=== PATIENT | male | born 1945 | race Caucasian/White ===

== ENCOUNTER 2018-09-19 17:03 | Inpatient (IN) ==
[2018-09-19 20:41] LABS: ABG Base Excess 6 mEq/L (-2 to 3); ABG HCO3 29 mEq/L (21-27); ABG Oxygen Saturation 98 % (95-98); ABG PCO2 37 mmHg (35-45); ABG PH 7.51 pH Units (7.32-7.45); ABG PO2 87 mmHg (85-104); ABG TCO2 30 mEq/L (20-26)
[2018-09-19] MEDS: Ipratropium/Albuterol Neb 3 ML IH SCH ×4 (20:50→23:48)
--- NOTE | 2018-09-19 21:50 | Internal Med History&Physical ---
Date of Encounter: 09/19/18 Time of Encounter: 21:49 Internal Medicine - H&P: HPI Chief complaint: SOB Admitted From: Home Plans for Post Hospital Care: Home History of present illness: Mata Cantu is a 73 year old man with coronary artery disease with stents, pulmonary embolism on apixaban and chronic hypoxic respiratory failure on home oxygen secondary to severe COPD who presents on transfer from [facility] where he went to with complaints of increasing shortness of breath. His states that for the past 2 months he has been in and out of hospitals due to COPD exacerbations and pneumonia, stating that ever since his medication regimen was changed to months ago things have not been the same even though he has since been reverted back to his original regimen. He reports increased dyspnea with mild exertion and he is easily fatigued now with notable exercise intolerance. He feels a pressure and tightness over his chest and feels he cannot get any air in. His states that this morning he choked on his medications as he is now having some difficulty swallowing. He denies fever and chills and states that his cough is nonproductive. His reports a history of MRSA pneumonia many years ago. At [place] he received a nebulizer treatment and was sent here for continued therapy. Vitals: Reviewed General: Notably fatigued and asthenic appearing. Skin: Diaphoretic, warm. HEENT: Moist mucous membranes. No conjunctivae pallor. Neck: No lymphadenopathy. No JVD. No carotid bruits. No palpable thyroid. Chest: Reduced thoracic expansion with diminished breath sounds bilaterally and a mild expiratory tracheal wheeze. Heart: Normal S1 & S2; rhythmic. No rubs or murmurs. Abdomen: distended, soft and non-tender to palpation. No peritoneal reaction. Extremities: No clubbing, cyanosis. Trace lower extremity edema. No calf tenderness. Normal distal pulses. Neurological: Awake, alert and oriented to person, place and time. No focal deficits. Psych: Affect appropriate. Assessment/Plan 1. Acute on chronic hypoxic respiratory failure: Suspect secondary to progressive COPD. Will need to evaluate the presence of an underlying triggering infection. He will be better evaluated with a chest CT with contrast given the multiple admissions he has had for these complaints and complicated respiratory history. Will keep him on standing nebulizer therapy for now and continue systemic steroids with azithromycin for its anti-inflammatory properties. 2. VTE: Continue apixaban. 3. CAD: Should be on aspirin and statin but is not on his home med list. EKG showing normal sinus rhythm occasional premature complexes. Chest pain free. He may have an element of ischemic cardiomyopathy and will get an echo for evaluation. 4. Dysphagia: The patient passed his bedside swallowing screen in my presence however he has some difficulty and is at risk for aspiration. Will get a speech/swallow consult for further evaluation. Past Med Surg Social Fam HX - Past Medical History Medical history: asthma, COPD, DVT, GERD Additional medical history: stents times 3, Psychiatric history: anxiety - Social History Smoking Status: Former smoker Alcohol use: none Drug use: none - Family History Mother Living Status: Age at : 85 Cause of : heart attack Father Living Status: Age at : 59 Cause of : heart attack Internal Medicine - H&P: Meds Allergy/AdvReac Type Severity Reaction Status Date / Time cefazolin [From Ancef] AdvReac See Verified 09/19/18 21:17 Comments All Systems PM: A 10-system review of systems was performed and is negative for pertinent findings except as documented above in the HPI. - Constitutional Vitals: Temp Pulse Resp BP Pulse Ox 98.4 F 93 19 148/72 97 09/19/18 19:49 09/19/18 19:49 09/19/18 20:50 09/19/18 19:49 09/19/18 20:50 Exam: . Internal Med - H&P Results - ABG Interpretation ABG results: 09/19/18 20:38 ABG pH 7.51 H ABG pCO2 37 ABG pO2 87 ABG HCO3 29 H ABG Total CO2 30 H ABG O2 Saturation 98 ABG Base Excess 6 H - Time Spent With Patient Total time spent is greater than 50% in coordination of care (as documented) at patient's floor/unit and/or counseling patient: Greater than 35 minutes
[2018-09-19 22:00] LABS: Basophils # 0.1 K/mcL (0.0-0.2); Basophils % 0.7 %; Eosinophils # 0.1 K/mcL (0.0-0.6); Eosinophils % 0.7 %; Hematocrit 45.8 % (37.5-50.1); Hemoglobin 14.4 g/dL (12.9-16.9); Immature Granulocytes % 4.1 % (0-4); Lymphocytes # 1.7 K/mcL (0.6-4.6); Lymphocytes % 13.2 %; Mean Corpuscular HGB Conc 31.4 g/dL (31.6-35.5); Mean Corpuscular Hemoglobin 33.9 pg (28.0-33.3); Mean Corpuscular Volume 107.8 fL (83.0-100.0); Mean Platelet Volume 9.9 fL (9.4-12.4); Monocytes # 0.8 K/mcL (0.0-1.3); Monocytes % 6.1 %; Neutrophils # 9.7 K/mcL (1.6-8.9); Nucleated Red Blood Cells 0.2 /100 WBC (0); Platelet Count 189 K/mcL (140-400); Red Blood Count 4.25 M/mcL (4.19-5.50); Red Cell Distribution Width 15.7 % (11.5-14.5); Segmented Neutrophils % 75.2 %; White Blood Count 12.8 K/mcL (4.3-11.1)
[2018-09-19] MEDS: Apixaban 5 MG TABLET PO SCH (22:06)
[2018-09-19] MEDS: GuaiFENesin Liq 200 MG/10 ML UDC PO PRN (22:07)
[2018-09-19 22:09] LABS: Heparin anti-factor XA UFH 0.85 IU/mL (0.30-0.70)
[2018-09-19 22:11] LABS: Activated Partial Thrombo Time 30.1 Seconds (26.0-36.0)
[2018-09-19 22:20] LABS: BUN/Creatinine Ratio 31 (6-26); Blood Urea Nitrogen 39 mg/dL (8-23); Calcium 9.3 mg/dL (8.6-10.3); Carbon Dioxide 31 mEq/L (23-29); Chloride 103 mEq/L (98-107); Glucose 98 mg/dL (70-105); Magnesium 3.1 mg/dL (1.6-2.6); Osmolality,Calculated 307 (280-300); Potassium 4.1 mEq/L (3.5-5.1); Sodium 144 mEq/L (136-145); eGFR For African Americans > 60 (> 60); eGFR For Non-African Americans 56 (> 60)
[2018-09-19 22:21] LABS: Troponin I 0.03 ng/mL (< 0.04)
[2018-09-19] MEDS ORDERED: Isovue-370 500 ML BOTTLE IVP ONE (23:05)
[2018-09-19] MEDS ORDERED: Ringers Solution, Lactated 1,000 ML IVC SCH (23:15)
[2018-09-20] MEDS: Ipratropium/Albuterol Neb 3 ML IH PRN ×2 (02:30→06:37)
[2018-09-20 04:02] LABS: BUN/Creatinine Ratio 32 (6-26); Blood Urea Nitrogen 37 mg/dL (8-23); Calcium 8.7 mg/dL (8.6-10.3); Carbon Dioxide 30 mEq/L (23-29); Chloride 102 mEq/L (98-107); Glucose 83 mg/dL (70-105); Magnesium 2.8 mg/dL (1.6-2.6); Osmolality,Calculated 302 (280-300); Potassium 4.5 mEq/L (3.5-5.1); Sodium 142 mEq/L (136-145); eGFR For African Americans > 60 (> 60); eGFR For Non-African Americans > 60 (> 60)
[2018-09-20] MEDS ORDERED: Ipratropium/Albuterol Neb 3 ML IH ONE (06:37)
[2018-09-20] MEDS ORDERED: Furosemide 20 MG/2 ML VIAL IVP ONE (06:47)
[2018-09-20] MEDS ORDERED: Morphine Sulfate 2 MG/ML SYRINGE IVP ONE ×2 (06:47→07:02)
[2018-09-20] MEDS ORDERED: Ipratropium/Albuterol Neb 3 ML ONE (06:48)
--- NOTE | 2018-09-20 07:15 | Event Note ---
Date of Encounter: 09/20/18 Time of Encounter: 06:42 Alerted by patient's nurse ELISA Mendoza that patient had been admitted with shortness of breath and COPD. Patient very anxious this morning and was stating he cannot breathe. Nurse reported patient sitting up in bed and coughing. Nurse called RT for PRN breathing treatment. ABG done which showed CO2 of 37. Patient had declined breathing treatments overnight in order to sleep. Nurse reported patient's lungs as diminished in bases. Dr. Yao alerted of the situation since he had admitted the pt. Dr. Yao went to see the pt. immediately who was in bed and had laboured breathing. Dr. Yao ordered 1 mg IVP morphine and 20 mg IVP lasix. Pts. nurse administered both. Dr. Yao instructed nurse not to waste the remaining 1 mg of IVP morphine in case the pt. required more d/t current anxiety r/t his hypoxia. Pt. remained anxious, so additional order for 1 mg IVP morphine placed and remaining 1 mg given to the pt. I called Pharmacy to make them aware that the remaining 1 mg morphine was administered and not wasted. Following administration of second 1 mg dose, pt. was much calmer. Nurse instructed to continue monitoring the pt. and alert day team immediately of any adverse changes or increased SOB.
[2018-09-20] MEDS: Tiotropium 18 MCG inhalation IH SCH (07:52)
[2018-09-20 10:14] LABS: Basophils # 0.1 K/mcL (0.0-0.2); Basophils % 0.6 %; Eosinophils # 0.1 K/mcL (0.0-0.6); Eosinophils % 0.9 %; Hematocrit 43.4 % (37.5-50.1); Hemoglobin 13.9 g/dL (12.9-16.9); Immature Granulocytes % 4.6 % (0-4); Lymphocytes # 1.9 K/mcL (0.6-4.6); Mean Corpuscular Hemoglobin 34.6 pg (28.0-33.3); Mean Platelet Volume 9.9 fL (9.4-12.4); Monocytes # 0.8 K/mcL (0.0-1.3); Monocytes % 6.1 %; Neutrophils # 9.7 K/mcL (1.6-8.9); Nucleated Red Blood Cells 0.2 /100 WBC (0); Platelet Count 187 K/mcL (140-400); Red Blood Count 4.02 M/mcL (4.19-5.50); Red Cell Distribution Width 15.8 % (11.5-14.5); Segmented Neutrophils % 73.8 %; White Blood Count 13.2 K/mcL (4.3-11.1)
[2018-09-20] MEDS: Ascorbic Acid 500 MG TABLET PO SCH (10:24)
[2018-09-20] MEDS: predniSONE 20 MG TABLET PO SCH (10:24)
[2018-09-20] MEDS: Apixaban 5 MG TABLET PO SCH ×2 (10:24→20:57)
[2018-09-20] MEDS: DULERA IH SCH ×2 (10:25→20:57)
[2018-09-20] MEDS: Azithromycin 500 MG in D5% in Water 250 ML IVPB SCH (10:25)
[2018-09-20] MEDS: Ipratropium/Albuterol Neb 3 ML IH SCH ×5 (11:07→23:18)
[2018-09-20] MEDS: Furosemide 40 MG TABLET PO SCH (11:12)
--- NOTE | 2018-09-20 12:55 | Pulmonology Consult Note ---
Date of Encounter: 09/20/18 Time of Encounter: 10:00 Assessment and Plan (1) COPD exacerbation Current Visit: Yes Status: Acute Patient coming with a COPD exacerbation with recurrence in the past few months no obvious evidence of any consolidation no evidence of pleural effusion or pneumothorax on present natural course of for COPD with the centrilobular and some panlobular emphysema patient has advanced COPD disease and H had neutrophilic inflammation induced flareup can take a while and is study like a decline of lung function is not of the consequences of repeated COPD exacerbation. To continue the home regimen of bronchodilators please schedule bronchodilators during inpatient on discharge patient will need chronic prednisone therapy as ac cording to patient 20 mg keeps the inflammation quiet. Will get pro-calcitonin to guide antibiotic therapy. (2) Pulmonary embolism Current Visit: Yes Status: Chronic Patient is all pulmonary embolism current CT a did not show any evidence of pulmonary embolism no evidence old infarct. To continue Apixaban Qualifiers: Pulmonary embolism type: unspecified Acute cor pulmonale presence: without acute cor pulmonale Qualified Code(s): I26.99 - Other pulmonary embolism without acute cor pulmonale (3) Lesion of left lung Current Visit: Yes Status: Acute The left upper lobe tenderness bullous sedation any possible infection: Lexapro calcitonin to continue antibiotics for now as per will add Zosyn as patient has severe structural lung disease high risk for pseudomonas infection. Will need at least 6-8 weeks follow-up of this left upper lobe lesion make sure it is not any slow-growing and adenocarcinoma in situ this lesion does not have any solid component. Discussed in length with patient's regarding the importance of follow-up of this lesion they verbalized understanding please schedule a follow- up appointment with the [place] pulmonology on [facility] based on patient preference. History of Present Illness Consult date: 09/20/18 Requesting physician: Lora Ribeiro Reason for consult: dyspnea, COPD Chief complaint: shortness of breadth History of present illness: 73-year-old male with past medical history significant for severe COPD with emphysematous changes chronic hypoxic respiratory failure was initially followed in [place] patient had a history of MRSA pneumonia the left lung with the left-sided pneumothorax in the past for which chest tube this is many years ago and he was followed in [facility] now is followed in [place] pulmonary patient is doing well to the month of July then he started to decline acutely with repeated COPD exacerbation this is one of his frequent flareups patient's shortness of breath is slightly better with some cough and sputum production denies much hemoptysis, denies any chest pain chest tightness denies any palpitation or syncope patient her pulmonary embolism in the past on Apixiban. Pulmonary was consult that because of this recurrent COPD exacerbation. Past Med Surg Social Fam HX - Past Medical History Medical history: asthma, COPD, DVT, GERD Additional medical history: stents times 3, Psychiatric history: anxiety - Social History Smoking Status: Former smoker Alcohol use: none Drug use: none - Family History Mother Living Status: Age at : 85 Cause of : heart attack Father Living Status: Age at : 59 Cause of : heart attack Medications and Allergies Apixaban [Eliquis] 5 mg PO BID 09/20/18 [History] Ascorbic Acid [C-500] 500 mg PO DAILY 09/20/18 [History] Azelastine HCl [Astepro] 2 spray NS BID 09/20/18 [History] Azithromycin [Zithromax] 250 mg PO MOWEFR 09/20/18 [History] Brimonidine Tartrate [Lumify] 1 drop LEFT EYE BID 09/20/18 [History] Cholecalciferol (Vitamin D3) [Dialyvite Vitamin D] 5,000 units PO QAM 09/20/18 [History] Cyanocobalamin (Vitamin B-12) [Vitamin B-12] 500 mcg PO QAM 09/20/18 [History] Furosemide [Lasix] 40 mg PO QAM 09/20/18 [History] Guaifenesin [Mucus Relief] 400 mg PO BID 09/20/18 [History] Ipratropium/Albuterol Sulfate [Combivent Respimat Inhal Cook Sta] 1 puff IH QID PRN 09/20/18 [History] Ipratropium/Albuterol Sulfate [Iprat-Albut 0.5-3(2.5) mg/3 ml] 3 ml PO QID PRN 09/20/18 [History] Mometasone/Formoterol [Dulera 100 Mcg/5 Mcg Inhaler] 2 puff IH BID 09/20/18 [History] Montelukast [Singulair] 10 mg PO QAM 09/20/18 [History] Potassium Chloride [K-Tab ER] 20 meq PO BID 09/20/18 [History] Tiotropium [Spiriva] 18 mcg IH PRN PRN 09/20/18 [History] predniSONE [PredniSONE] 60 mg PO QAM 09/20/18 [History] Allergy/AdvReac Type Severity Reaction Status Date / Time atorvastatin [From Lipitor] Allergy Muscle Verified 09/20/18 01:35 Pain, Weakness clarithromycin [From Biaxin] Allergy Nausea, Verified 09/20/18 01:35 Stomach Cramping clonazepam [From Klonopin] Allergy Dizziness, Verified 09/20/18 01:35 Confusion dexamethasone Allergy See Verified 09/20/18 01:35 Comments doxycycline Allergy Hives Verified 09/20/18 00:42 ezetimibe [From Vytorin] Allergy Muscle Verified 09/20/18 01:35 Pain, Weakness fluticasone Allergy Difficulty Verified 09/20/18 01:35 [From Advair Diskus] Breathing levofloxacin Allergy See Verified 09/20/18 01:35 Comments lorazepam [From Ativan] Allergy Depression, Verified 09/20/18 01:35 Hallucinations, Confusio methylprednisolone Allergy Difficulty Verified 09/20/18 00:44 [From Solu-Medrol] Swallowing oseltamivir [From Tamiflu] Allergy Hallucinating, Verified 09/20/18 01:35 Confusion salmeterol Allergy Difficulty Verified 09/20/18 01:35 [From Advair Diskus] Breathing simvastatin [From Vytorin] Allergy Fainting Verified 09/20/18 00:44 Sulfa (Sulfonamide Allergy Hives, Verified 09/20/18 01:35 Antibiotics) Swelling Varenicline [From Chantix] Allergy Agitated, Verified 09/20/18 01:35 Depression, Extreme mood changes cefazolin [From Ancef] AdvReac Nausea, Verified 09/20/18 01:35 Diarrhea roflumilast [From Daliresp] AdvReac Depression, Verified 09/20/18 01:35 Confusion, Agitation, Mood Change, Dizziness All Systems: The remainder of the systems were reviewed and are negative Physical Examination Vital Signs: Vital Signs, Last 4 Hours Temp Pulse Resp BP Pulse Ox 09/20/18 12:06 98.6 F 102 13 108/62 97 09/20/18 11:07 16 97 General appearance: no acute distress Effort: mildly labored Auscultation: bilateral: wheezes (Scattered wheezes) Cardiovascular: regular rate and rhythm Gastrointestinal: normoactive bowel sounds Extremities: no edema normal mental status, non-focal exam Results - Laboratory Findings CBC and BMP: 09/20/18 09:57 09/20/18 03:29 ABG ABG pH 7.51 pH Units (7.32-7.45) H 09/19/18 20:38 ABG pCO2 37 mmHg (35-45) 09/19/18 20:38 ABG pO2 87 mmHg (85-104) 09/19/18 20:38 ABG O2 Saturation 98 % (95-98) 09/19/18 20:38 PT/INR, D-dimer PT 11.0 Seconds (9.4-12.1) 09/19/18 21:45 Abnormal lab findings: Abnormal lab results WBC 13.2 K/mcL (4.3-11.1) H 09/20/18 09:57 RBC 4.02 M/mcL (4.19-5.50) L 09/20/18 09:57 MCV 108.0 fL (83.0-100.0) H 09/20/18 09:57 MCH 34.6 pg (28.0-33.3) H 09/20/18 09:57 MCHC 31.4 g/dL (31.6-35.5) L 09/19/18 21:45 RDW 15.8 % (11.5-14.5) H 09/20/18 09:57 Immature Gran % 4.6 % (0-4) H 09/20/18 09:57 9.7 K/mcL (1.6-8.9) H 09/20/18 09:57 Nucleated RBCs/100 WBC 0.2 /100 WBC (0) H 09/20/18 09:57 Heparin Anti-Xa, Unfract 0.85 IU/mL (0.30-0.70) H 09/19/18 21:45 ABG pH 7.51 pH Units (7.32-7.45) H 09/19/18 20:38 ABG HCO3 29 mEq/L (21-27) H 09/19/18 20:38 ABG Total CO2 30 mEq/L (20-26) H 09/19/18 20:38 ABG Base Excess 6 mEq/L (-2 to 3) H 09/19/18 20:38 Carbon Dioxide 30 mEq/L (23-29) H 09/20/18 03:29 BUN 37 mg/dL (8-23) H 09/20/18 03:29 Est GFR (Non-Af Amer) 56 (> 60) L 09/19/18 21:45 32 (6-26) H 09/20/18 03:29 302 (280-300) H 09/20/18 03:29 Lactic Acid 3.1 mmol/L (0.5-2.2) H 09/19/18 22:57 Magnesium 2.8 mg/dL (1.6-2.6) H 09/20/18 03:29 - Microbiology Findings Microbiology Findings: Microbiology, Last 48 Hours 09/20/18 03:44 Legionella Antigen - Final Urine,Clean Catch Streptococcus pneumoniae Antigen (M - Final - Clinical Findings Intake & Output: Intake & Output 09/19/18 09/20/18 09/20/18 23:59 07:59 15:59 Intake Total 240 / 240 250 / 250 Output Total 0 / 0 300 / 300 Balance 240 / 240 -50 / -50 Weight 80.3 kg 81 kg Consult Discharge Plan - Plan Referrals: NONE,PCP [Primary Care Provider] -
--- NOTE | 2018-09-20 14:42 | Electrocardiograph Report ---
[address] [address] Test Date: 2018-09-19 Pat Name: Mata Cantu Department: 113 Room: 3B44 Gender: M Neon Sign Mechanic: : 1945 Requested By: Sammi Yao Order Number: [id number] Reading MD: Glenn Mojica Measurements Intervals [place] Rate: 91 P: 78 VA: 134 QRS: 9 QRSD: 98 T: 88 QT: 344 QTc: 393 Interpretive Statements SINUS RHYTHM WITH OCCASIONAL SUPRAVENTRICULAR PREMATURE COMPLEXES Electronically Signed On 09-20-2018 14:41:06 EDT by Glenn Mojica
[2018-09-20] MEDS: Piperacillin/Tazobactam 3.375 GM in 0.9 % Sodium Chloride Mini Bag 100 ML IVPB SCH ×2 (15:16→23:44)
--- NOTE | 2018-09-20 15:31 | Internal Med Progress Note ---
Hospitalist Progress Note - Encounter Date of Encounter: 09/20/18 Time of Encounter: 11:00 - Subjective Interval History: Patient was seen and examined at bedside has been experiencing a lot of anxiety and was given morphine much calmer at this time however I do note faint expiratory wheezes. We will consult pulmonology - Exam Vitals: Temp Pulse Resp BP Pulse Ox 98.6 F 102 13 108/62 97 09/20/18 12:06 09/20/18 12:06 09/20/18 12:06 09/20/18 12:06 09/20/18 12:06 Exam: Skin: Free of rash and discoloration. Eyes: Sclera is white. There is no discharge from eyes. ENMT: Oral/pharyngeal mucosa is normal in appearance. There is no discharge from nose or ears. Respiratory: Faint expiratory wheeze CV: Heart is regular with no gallop or murmur. GI: Abdomen is flat and soft with no palpable mass or visceromegaly. : There is no tenderness in patient's flanks bilaterally. Neuro exam: He has good strength in upper and lower extremities. He has normal eye movements. Psychiatric: He has normal affect. His thought process is appropriate to the situation. - Assessment and Plan (1) Hx pulmonary embolism Current Visit: Yes Status: Acute Assessment and Plan: Chest CTA negative for PE continue with home Eliquis (2) CAD (coronary artery disease) Current Visit: Yes Status: Acute Assessment and Plan: 1 continue with aspirin check lipid profile -Continue cardiac monitoring Cardiac echo (3) COPD exacerbation Current Visit: Yes Status: Acute Assessment and Plan: Continue with oxygen support as well as bronchodilators Prednisone 60 mg patient is allergic to Solu-Medrol Pulmonology was consulted and appreciate support Continue azithromycin Morphine as needed for anxiety (4) Lesion of left lung Current Visit: Yes Status: Acute Assessment and Plan: Chest CTA did show a bubbly lucency in the posterior left upper lobe measuring 24 x 27 mm in axial plane. No definite solid component. 4 mm nodule with pleural tail at the lateral left lung base. Pulmonology was consulted and appreciate recommendations - Time Spent with Patient Total time spent is greater than 50% in coordination of care (as documented) at patient's floor/unit and/or counseling patient: Internal Medicine: Result - Labs CBC & Chem 7: 09/20/18 09:57 09/20/18 03:29 Labs: Short CBC 09/19/18 09/20/18 Range/Units 21:45 09:57 WBC 12.8 H 13.2 H (4.3-11.1) K/mcL Hgb 14.4 13.9 (12.9-16.9) g/dL Hct 45.8 43.4 (37.5-50.1) % Plt Count 189 187 (140-400) K/mcL Neutrophils # 9.7 H 9.7 H (1.6-8.9) K/mcL BMP 09/19/18 09/20/18 21:45 03:29 Sodium 144 142 Potassium 4.1 4.5 Chloride 103 102 Carbon Dioxide 31 H 30 H BUN 39 H 37 H Creatinine 1.27 1.16 Glucose 98 83 Calcium 9.3 8.7 Cardiac Enzymes 09/19/18 Range/Units 21:45 Troponin I 0.03 (< 0.04) ng/mL - ABG Interpretation ABG results: ABG ABG pH 7.51 pH Units (7.32-7.45) H 09/19/18 20:38 ABG pCO2 37 mmHg (35-45) 09/19/18 20:38 ABG pO2 87 mmHg (85-104) 09/19/18 20:38 ABG O2 Saturation 98 % (95-98) 09/19/18 20:38 PT/INR, D-dimer PT 11.0 Seconds (9.4-12.1) 09/19/18 21:45 - Impressions Impressions Chest CTA 09/19/18 23:05 IMPRESSION: Chest: Negative for acute pulmonary embolism. No aortic aneurysm. Left upper lobe bubbly lucency is suspicious for adenocarcinoma spectrum lesion given background of advanced emphysema. Consider follow-up low-dose CT chest in 3-6 months. Patient may also be considered for lung cancer screening as deemed clinically appropriate. An additional comparison imaging would be helpful if available. Additional 4 mm solid nodule at the left lung base is most consistent with a benign parenchymal lymph node. This may also be reassessed at follow-up. Abdomen/pelvis: No acute abdominopelvic findings. Specifically, no bowel obstruction/ileus. Right renal atrophy. Indeterminate 12 mm left renal hypodensity, favored to represent a simple cyst. Follow-up renal protocol CT or MRI may help further characterize. Chronic appearing T5 and T7 compression deformities. RECOMMENDATIONS: USPSTF recommendations for annual screening for lung cancer with low-dose computed tomography (LDCT) in high risk patients: *Age 55-80 years *30 year pack history of smoking *Currently smoking or has quit within the last 15 years. For more information in enrollment in [facility] lung nodule monitoring program, please call the program nurse coordinator at [phone] ([phone]). D/ / Curt Marie / Curt Marie Interpreting Provider: Curt Marie Abdomen/Pelvis CT 09/19/18 23:06 IMPRESSION: Chest: Negative for acute pulmonary embolism. No aortic aneurysm. Left upper lobe bubbly lucency is suspicious for adenocarcinoma spectrum lesion given background of advanced emphysema. Consider follow-up low-dose CT chest in 3-6 months. Patient may also be considered for lung cancer screening as deemed clinically appropriate. An additional comparison imaging would be helpful if available. Additional 4 mm solid nodule at the left lung base is most consistent with a benign parenchymal lymph node. This may also be reassessed at follow-up. Abdomen/pelvis: No acute abdominopelvic findings. Specifically, no bowel obstruction/ileus. Right renal atrophy. Indeterminate 12 mm left renal hypodensity, favored to represent a simple cyst. Follow-up renal protocol CT or MRI may help further characterize. Chronic appearing T5 and T7 compression deformities. RECOMMENDATIONS: USPSTF recommendations for annual screening for lung cancer with low-dose computed tomography (LDCT) in high risk patients: *Age 55-80 years *30 year pack history of smoking *Currently smoking or has quit within the last 15 years. For more information in enrollment in [facility] lung nodule monitoring program, please call the program nurse coordinator at [phone] ([phone]). D/ / Curt Marie / Curt Marie Interpreting Provider: Curt Marie Consult Discharge Plan - Plan Referrals: NONE,PCP [Primary Care Provider] - (2) CAD (coronary artery disease) Qualifiers: Coronary Disease-Associated Artery/Lesion type: unspecified vessel or lesion type
[2018-09-20] MEDS: Melatonin 3 MG TABLET PO PRN (20:58)
[2018-09-21 02:49] LABS: Hematocrit 37.6 % (37.5-50.1); Immature Granulocytes % 3.9 % (0-4); Lymphocytes % 8.7 %; Mean Corpuscular HGB Conc 32.7 g/dL (31.6-35.5); Mean Corpuscular Hemoglobin 34.1 pg (28.0-33.3); Mean Corpuscular Volume 104.2 fL (83.0-100.0); Mean Platelet Volume 10.2 fL (9.4-12.4); Platelet Count 175 K/mcL (140-400); Red Blood Count 3.61 M/mcL (4.19-5.50); Red Cell Distribution Width 15.4 % (11.5-14.5); Segmented Neutrophils % 82.9 %; White Blood Count 9.7 K/mcL (4.3-11.1)
[2018-09-21 02:50] LABS: Basophils # 0.1 K/mcL (0.0-0.2); Basophils % 0.5 %; Lymphocytes # 0.9 K/mcL (0.6-4.6); Monocytes # 0.4 K/mcL (0.0-1.3); Neutrophils # 8.1 K/mcL (1.6-8.9)
[2018-09-21 02:51] LABS: Hemoglobin 12.3 g/dL (12.9-16.9)
[2018-09-21 03:10] LABS: BUN/Creatinine Ratio 28 (6-26); Blood Urea Nitrogen 37 mg/dL (8-23); Calcium 8.6 mg/dL (8.6-10.3); Carbon Dioxide 29 mEq/L (23-29); Chloride 99 mEq/L (98-107); Chol/HDL Ratio 3.3 (0-4.9); Glucose 162 mg/dL (70-105); Osmolality,Calculated 300 (280-300); Potassium 4.5 mEq/L (3.5-5.1); Sodium 139 mEq/L (136-145); eGFR For African Americans > 60 (> 60); eGFR For Non-African Americans 54 (> 60)
[2018-09-21] MEDS: Ipratropium/Albuterol Neb 3 ML IH SCH ×6 (03:30→23:35)
[2018-09-21] MEDS: Tiotropium 18 MCG inhalation IH SCH (08:14)
[2018-09-21] MEDS: Furosemide 40 MG TABLET PO SCH (08:43)
[2018-09-21] MEDS: predniSONE 20 MG TABLET PO SCH (08:43)
[2018-09-21] MEDS: Ascorbic Acid 500 MG TABLET PO SCH (08:43)
[2018-09-21] MEDS: Apixaban 5 MG TABLET PO SCH ×2 (08:43→19:24)
[2018-09-21] MEDS: Azithromycin 500 MG in D5% in Water 250 ML IVPB SCH (08:44)
[2018-09-21] MEDS: Piperacillin/Tazobactam 3.375 GM in 0.9 % Sodium Chloride Mini Bag 100 ML IVPB SCH ×3 (08:44→23:57)
[2018-09-21] MEDS: DULERA IH SCH ×2 (10:52→19:25)
--- NOTE | 2018-09-21 11:51 | Internal Med Progress Note ---
Hospitalist Progress Note - Encounter Date of Encounter: 09/21/18 Time of Encounter: 11:47 - Subjective Interval History: Pt seen and examined in the room. Reported dyspnea on exertion but no chest pain or palpitation. Cough with whitish mucus, no fever, chills, or night sweats. - Exam Vitals: Temp Pulse Resp BP Pulse Ox 98.8 F 84 18 113/75 100 09/21/18 11:06 09/21/18 11:06 09/21/18 08:15 09/21/18 11:06 09/21/18 11:06 Exam: Skin: Free of rash and discoloration. Eyes: Sclera is white. There is no discharge from eyes. ENMT: Oral/pharyngeal mucosa is normal in appearance. There is no discharge from nose or ears. Respiratory: Faint expiratory wheeze CV: Heart is regular with no gallop or murmur. GI: Abdomen is flat and soft with no palpable mass or visceromegaly. : There is no tenderness in patient's flanks bilaterally. Neuro exam: He has good strength in upper and lower extremities. He has normal eye movements. Psychiatric: He has normal affect. His thought process is appropriate to the situation. - Assessment and Plan (1) COPD exacerbation Current Visit: Yes Status: Acute Assessment and Plan: Pulm consulted and recommended adding IV zosyn in addition to Azithromycin. CT chest showed RADHA lesion, Pulm recommended treatment as infection and f/u as outpatient to ensure lesion is resolved. WBC normal, symptoms improving. Continue oral steroid and bronchodilators. May add BiPAP if indicated. (2) Lesion of left lung Current Visit: Yes Status: Acute Assessment and Plan: Chest CTA did show a bubbly lucency in the posterior left upper lobe measuring 24 x 27 mm in axial plane. No definite solid component. 4 mm nodule with pleural tail at the lateral left lung base. Pulmonology was consulted and appreciate recommendations (3) Hx pulmonary embolism Current Visit: Yes Status: Acute Assessment and Plan: Chest CTA negative for PE continue with home Eliquis (4) CAD (coronary artery disease) Current Visit: Yes Status: Acute Assessment and Plan: 1 continue with aspirin check lipid profile Continue cardiac monitoring Cardiac echo unremarkable. DVT Prophylaxis: On Eliquis. - Time Spent with Patient Total time spent is greater than 50% in coordination of care (as documented) at patient's floor/unit and/or counseling patient: Greater than 35 minutes Plan of Care Discussed with: patient Internal Medicine: Result - Labs CBC & Chem 7: 09/21/18 01:48 09/21/18 01:48 Labs: Short CBC 09/21/18 Range/Units 01:48 WBC 9.7 (4.3-11.1) K/mcL Hgb 12.3 L D (12.9-16.9) g/dL Hct 37.6 (37.5-50.1) % Plt Count 175 (140-400) K/mcL Neutrophils # 8.1 (1.6-8.9) K/mcL BMP 09/21/18 01:48 Sodium 139 Potassium 4.5 Chloride 99 Carbon Dioxide 29 BUN 37 H Creatinine 1.30 Glucose 162 H Calcium 8.6 - ABG Interpretation ABG results: ABG ABG pH 7.51 pH Units (7.32-7.45) H 09/19/18 20:38 ABG pCO2 37 mmHg (35-45) 09/19/18 20:38 ABG pO2 87 mmHg (85-104) 09/19/18 20:38 ABG O2 Saturation 98 % (95-98) 09/19/18 20:38 PT/INR, D-dimer PT 11.0 Seconds (9.4-12.1) 09/19/18 21:45 - Impressions Impressions Echocardiogram 09/19/18 20:17 Impressions: LVEF 50-55%. Normal LV chamber size, wall thickness and function. Mild left ventricular diastolic dysfunction. Normal right ventricular structure and function. No evidence of pulmonary hypertension identified. No significant valvular dysfunction. Left Ventricular Wall Motion: Rest Echo Findings All wall segments showed normal motion. Findings: Study Quality * Technically sub-optimal due to poor echocardiographic windows. ECG Findings * Sinus rhythm with BBB. Left Ventricle * LVEF 50-55%. * Normal LV chamber size, wall thickness and function. * Mild left ventricular diastolic dysfunction. Right Ventricle * Normal right ventricular structure and function. Left Atrium * Normal left atrial size. Right Atrium * Normal right atrial size. Interatrial Septum * Interatrial septum not well evaluated. Aortic Valve * Aortic valve not well visualized. * Trace aortic regurgitation. * No aortic stenosis. Mitral Valve * Normal mitral valve structure and function. * No mitral regurgitation. * No mitral stenosis. Tricuspid Valve * Normal tricuspid valve structure and function. * Trace tricuspid regurgitation. * No evidence of pulmonary hypertension. Pulmonic Valve * Pulmonic valve is not well visualized. * No pulmonic regurgitation. Aorta * Normally sized aortic root. Pericardium * The pericardium appears normal. IVC * Normal IVC dimensions and inspiratory collapse. Pulmonary Artery * Pulmonary artery not well visualized. Consult Discharge Plan - Plan Referrals: NONE,PCP [Primary Care Provider] - (4) CAD (coronary artery disease) Qualifiers: Coronary Disease-Associated Artery/Lesion type: unspecified vessel or lesion type
--- NOTE | 2018-09-21 15:06 | Pulmonology Progress Note ---
Date of Encounter: 09/21/18 Time of Encounter: 15:00 Assessment and Plan (1) COPD exacerbation Current Visit: Yes Status: Acute Patient presenting with COPD exacerbation he went have this translucent the left upper lobe can be this infected bullae with the increased procalcitonin suggestive of a bacterial infection will continue with broad-spectrum ant ibiotics, oral prednisone to continue scheduled bronchodilators patient cannot tolerate Solu-Medrol. Counseled patient and family that the asymmetric protracted course because of the underlying severity of COPD (2) Pulmonary embolism Current Visit: Yes Status: Chronic To continue oral anticoagulants. Qualifiers: Pulmonary embolism type: unspecified Acute cor pulmonale presence: without acute cor pulmonale Qualified Code(s): I26.99 - Other pulmonary embolism without acute cor pulmonale (3) Lesion of left lung Current Visit: Yes Status: Acute Left upper lobe most likely likely infected bullae to continue broad-spectrum antibiotics. Will need outpatient follow-up of this lesion if persistent will need the PET CT scan as there is high risk of bronchogenic carcinoma from bullae. Subjective Principal diagnosis: COPD exacerbation with Pneumonia Interval history: Patient is more feeling better still has some shortness of breath and wheezing but denies having any anxiety attacks yesterday. Patient denies any chest pain chest tightness denies any palpitation or syncope. Objective PUL Vital signs: Last Vital Signs Temp 98.8 F 09/21/18 11:06 Pulse 84 09/21/18 11:06 Resp 16 09/21/18 11:50 BP 113/75 09/21/18 11:06 Pulse Ox 99 09/21/18 11:50 Auscultation: bilateral: wheezes Cardiovascular: regular rate and rhythm Gastrointestinal: normoactive bowel sounds Extremities: no cyanosis, no edema Musculoskeletal: no deformities normal mental status, non-focal exam mood appropriate Results - Laboratory Findings CBC and BMP: 09/21/18 01:48 09/21/18 01:48 ABG ABG pH 7.51 pH Units (7.32-7.45) H 09/19/18 20:38 ABG pCO2 37 mmHg (35-45) 09/19/18 20:38 ABG pO2 87 mmHg (85-104) 09/19/18 20:38 ABG O2 Saturation 98 % (95-98) 09/19/18 20:38 PT/INR, D-dimer PT 11.0 Seconds (9.4-12.1) 09/19/18 21:45 Abnormal lab findings: Abnormal lab results WBC 13.2 K/mcL (4.3-11.1) H 09/20/18 09:57 RBC 3.61 M/mcL (4.19-5.50) L 09/21/18 01:48 Hgb 12.3 g/dL (12.9-16.9) L D 09/21/18 01:48 MCV 104.2 fL (83.0-100.0) H 09/21/18 01:48 MCH 34.1 pg (28.0-33.3) H 09/21/18 01:48 MCHC 31.4 g/dL (31.6-35.5) L 09/19/18 21:45 RDW 15.4 % (11.5-14.5) H 09/21/18 01:48 Immature Gran % 4.6 % (0-4) H 09/20/18 09:57 9.7 K/mcL (1.6-8.9) H 09/20/18 09:57 Nucleated RBCs/100 WBC 0.2 /100 WBC (0) H 09/20/18 09:57 Heparin Anti-Xa, Unfract 0.85 IU/mL (0.30-0.70) H 09/19/18 21:45 ABG pH 7.51 pH Units (7.32-7.45) H 09/19/18 20:38 ABG HCO3 29 mEq/L (21-27) H 09/19/18 20:38 ABG Total CO2 30 mEq/L (20-26) H 09/19/18 20:38 ABG Base Excess 6 mEq/L (-2 to 3) H 09/19/18 20:38 Carbon Dioxide 30 mEq/L (23-29) H 09/20/18 03:29 BUN 37 mg/dL (8-23) H 09/21/18 01:48 Est GFR (Non-Af Amer) 54 (> 60) L 09/21/18 01:48 28 (6-26) H 09/21/18 01:48 Glucose 162 mg/dL (70-105) H 09/21/18 01:48 302 (280-300) H 09/20/18 03:29 Lactic Acid 3.1 mmol/L (0.5-2.2) H 09/19/18 22:57 Magnesium 2.8 mg/dL (1.6-2.6) H 09/20/18 03:29 Triglycerides 157 mg/dL (< 150) H 09/21/18 01:48 VLDL Cholesterol, Calc 31 mg/dL (< 31) H 09/21/18 01:48 0.37 ng/mL (0.00-0.15) H 09/20/18 13:16 - Microbiology Findings Microbiology Findings: Microbiology, Last 48 Hours 09/20/18 03:44 Legionella Antigen - Final Urine,Clean Catch Streptococcus pneumoniae Antigen (M - Final - Clinical Findings Intake & Output: Intake & Output 09/20/18 09/21/18 09/21/18 23:59 07:59 15:59 Intake Total 100 / 600 100 / 450 350 / 450 Output Total 50 / 350 Balance 50 / 250 100 / 450 350 / 450 Weight 79.6 kg Consult Discharge Plan - Plan Referrals: Reny Guerrero [Non-Partnered Physician] - 10/06/18 9:00 am (Please fill out new oatient packet that will be mailed to you to the address on file. Please bring all ID, insurance cards, medications, and medications within the bottles. )
[2018-09-21] MEDS: GuaiFENesin Liq 200 MG/10 ML UDC PO PRN (19:29)
[2018-09-21] MEDS: Melatonin 3 MG TABLET PO PRN (19:31)
[2018-09-22 02:30] LABS: Basophils % 0.3 %; Hematocrit 34.9 % (37.5-50.1); Hemoglobin 11.3 g/dL (12.9-16.9); Immature Granulocytes % 2.1 % (0-4); Lymphocytes # 0.7 K/mcL (0.6-4.6); Lymphocytes % 6.9 %; Mean Corpuscular HGB Conc 32.4 g/dL (31.6-35.5); Mean Corpuscular Hemoglobin 34.2 pg (28.0-33.3); Mean Corpuscular Volume 105.8 fL (83.0-100.0); Mean Platelet Volume 10.4 fL (9.4-12.4); Monocytes # 0.6 K/mcL (0.0-1.3); Monocytes % 5.5 %; Neutrophils # 8.5 K/mcL (1.6-8.9); Nucleated Red Blood Cells 0.2 /100 WBC (0); Platelet Count 168 K/mcL (140-400); Red Cell Distribution Width 15.1 % (11.5-14.5); Segmented Neutrophils % 85.2 %
[2018-09-22 02:40] LABS: BUN/Creatinine Ratio 24 (6-26); Blood Urea Nitrogen 33 mg/dL (8-23); Calcium 8.5 mg/dL (8.6-10.3); Carbon Dioxide 33 mEq/L (23-29); Chloride 100 mEq/L (98-107); Glucose 165 mg/dL (70-105); Osmolality,Calculated 303 (280-300); Potassium 4.4 mEq/L (3.5-5.1); Sodium 141 mEq/L (136-145); eGFR For African Americans > 60 (> 60); eGFR For Non-African Americans 51 (> 60)
[2018-09-22] MEDS: Ipratropium/Albuterol Neb 3 ML IH SCH ×6 (04:18→23:36)
--- NOTE | 2018-09-22 06:42 | Pulmonology Progress Note ---
Date of Encounter: 09/22/18 Time of Encounter: 06:42 Assessment and Plan (1) COPD exacerbation Current Visit: Yes Status: Acute Patient appears to be improving and will benefit from continued IV steroids today and can transition to by mouth formulation tomorrow of 40 mg of prednisone which can be tapered over the next 2-3 weeks. Recommend Symbicort 160/4.52 puffs twice a day Schedule bronchodilators (2) Lesion of left lung Current Visit: Yes Status: Acute Patient will need to have follow-up radiographically for this is unclear if this is infectious or malignant in nature I favor more infectious/inflammatory but regardless will need radiographic surveillance repeat CT scan in 4-6 weeks and then if stable likely in 3 months. Outpatient pulmonary follow-up He is on broad-spectrum antibiotics cultures are negative MRSA and nasal swab is positive and these being treated for presumptive MRSA although the bronchoscopy is negative I suspect when cultures finalize if there is no evidence of MRSA can likely de-escalate. He completed a course of Levaquin and doxycycline at last visit and so would likely just transition him to oral Augmentin to complete 7-10 day course. Subjective Principal diagnosis: COPD exacerbation with Pneumonia Objective PUL Vital signs: Last Vital Signs Temp 98.2 F 09/22/18 03:03 Pulse 78 09/22/18 03:03 Resp 18 09/22/18 04:18 BP 105/75 09/22/18 03:03 Pulse Ox 98 09/22/18 04:18 Results - Laboratory Findings CBC and BMP: 09/22/18 01:24 09/22/18 01:24 ABG ABG pH 7.51 pH Units (7.32-7.45) H 09/19/18 20:38 ABG pCO2 37 mmHg (35-45) 09/19/18 20:38 ABG pO2 87 mmHg (85-104) 09/19/18 20:38 ABG O2 Saturation 98 % (95-98) 09/19/18 20:38 PT/INR, D-dimer PT 11.0 Seconds (9.4-12.1) 09/19/18 21:45 Abnormal lab findings: Abnormal lab results WBC 13.2 K/mcL (4.3-11.1) H 09/20/18 09:57 RBC 3.30 M/mcL (4.19-5.50) L 09/22/18 01:24 Hgb 11.3 g/dL (12.9-16.9) L 09/22/18 01:24 Hct 34.9 % (37.5-50.1) L 09/22/18 01:24 MCV 105.8 fL (83.0-100.0) H 09/22/18 01:24 MCH 34.2 pg (28.0-33.3) H 09/22/18 01:24 MCHC 31.4 g/dL (31.6-35.5) L 09/19/18 21:45 RDW 15.1 % (11.5-14.5) H 09/22/18 01:24 Immature Gran % 4.6 % (0-4) H 09/20/18 09:57 9.7 K/mcL (1.6-8.9) H 09/20/18 09:57 Nucleated RBCs/100 WBC 0.2 /100 WBC (0) H 09/22/18 01:24 Heparin Anti-Xa, Unfract 0.85 IU/mL (0.30-0.70) H 09/19/18 21:45 ABG pH 7.51 pH Units (7.32-7.45) H 09/19/18 20:38 ABG HCO3 29 mEq/L (21-27) H 09/19/18 20:38 ABG Total CO2 30 mEq/L (20-26) H 09/19/18 20:38 ABG Base Excess 6 mEq/L (-2 to 3) H 09/19/18 20:38 Carbon Dioxide 33 mEq/L (23-29) H 09/22/18 01:24 BUN 33 mg/dL (8-23) H 09/22/18 01:24 1.37 mg/dL (0.70-1.30) H 09/22/18 01:24 Est GFR (Non-Af Amer) 51 (> 60) L 09/22/18 01:24 28 (6-26) H 09/21/18 01:48 Glucose 165 mg/dL (70-105) H 09/22/18 01:24 303 (280-300) H 09/22/18 01:24 Lactic Acid 3.1 mmol/L (0.5-2.2) H 09/19/18 22:57 Calcium 8.5 mg/dL (8.6-10.3) L 09/22/18 01:24 Magnesium 2.8 mg/dL (1.6-2.6) H 09/20/18 03:29 Triglycerides 157 mg/dL (< 150) H 09/21/18 01:48 VLDL Cholesterol, Calc 31 mg/dL (< 31) H 09/21/18 01:48 0.37 ng/mL (0.00-0.15) H 09/20/18 13:16 - Microbiology Findings Microbiology Findings: Microbiology, Last 48 Hours 09/20/18 03:44 Legionella Antigen - Final Urine,Clean Catch Streptococcus pneumoniae Antigen (M - Final - Clinical Findings Intake & Output: Intake & Output 09/21/18 09/21/18 09/22/18 15:59 23:59 07:59 Intake Total 350 / 1750 1300 / 1750 100 / 100 Output Total 300 / 300 Balance 350 / 1750 1300 / 1750 -200 / -200 Weight 80.6 kg Consult Discharge Plan - Plan Referrals: Reny Guerrero [Non-Partnered Physician] - 10/06/18 9:00 am (Please fill out new oatient packet that will be mailed to you to the address on file. Please bring all ID, insurance cards, medications, and medications within the bottles. )
[2018-09-22] MEDS: Piperacillin/Tazobactam 3.375 GM in 0.9 % Sodium Chloride Mini Bag 100 ML IVPB SCH ×2 (07:47→15:44)
[2018-09-22] MEDS: predniSONE 20 MG TABLET PO SCH (07:50)
[2018-09-22] MEDS: Apixaban 5 MG TABLET PO SCH ×2 (07:50→21:36)
[2018-09-22] MEDS: Furosemide 40 MG TABLET PO SCH (07:50)
[2018-09-22] MEDS: Ascorbic Acid 500 MG TABLET PO SCH (07:50)
[2018-09-22] MEDS: Cholecalciferol (D-3) 1,000 UNIT TABLET PO SCH (07:53)
[2018-09-22] MEDS: Cyanocobalamin (B-12) 1,000 MCG TABLET PO SCH (07:53)
[2018-09-22] MEDS: Budesonide/Formoterol 80/4.5 MDI IH SCH ×2 (08:30→19:48)
[2018-09-22] MEDS: Tiotropium 18 MCG inhalation IH SCH (08:31)
--- NOTE | 2018-09-22 08:55 | Internal Med Progress Note ---
Hospitalist Progress Note - Encounter Date of Encounter: 09/22/18 Time of Encounter: 08:52 - Subjective Interval History: Pt seen and examined in the room. He reported dry cough and difficulty coughing out mucus. Still having dyspea with exertion but is improving. Overnight, has no fever, chills, or night sweats. - Exam Vitals: Temp Pulse Resp BP Pulse Ox 98.5 F 84 16 124/74 100 09/22/18 07:23 09/22/18 07:23 09/22/18 07:23 09/22/18 07:23 09/22/18 07:23 Exam: Skin: Free of rash and discoloration. Eyes: Sclera is white. There is no discharge from eyes. ENMT: Oral/pharyngeal mucosa is normal in appearance. There is no discharge from nose or ears. Respiratory: Faint expiratory wheeze CV: Heart is regular with no gallop or murmur. GI: Abdomen is flat and soft with no palpable mass or visceromegaly. : There is no tenderness in patient's flanks bilaterally. Neuro exam: He has good strength in upper and lower extremities. He has normal eye movements. Psychiatric: He has normal affect. His thought process is appropriate to the situation. - Assessment and Plan (1) COPD exacerbation Current Visit: Yes Status: Acute Assessment and Plan: Pulm consulted and recommended adding IV zosyn in addition to Azithromycin. Labs are negative for legionella and pneumoncossu, Azithromycin dc'ed. CT chest showed RADHA lesion, Pulm recommended treatment as infection and f/u as outpatient to ensure lesion is resolved. WBC normal, symptoms improving. Continue oral steroid and bronchodilators. Started on Mucinex. Lasix dc'ed due to rising Cr. Started pt on BiPAP (2) Lesion of left lung Current Visit: Yes Status: Acute Assessment and Plan: Chest CTA did show a bubbly lucency in the posterior left upper lobe measuring 24 x 27 mm in axial plane. No definite solid component. 4 mm nodule with pleural effusion at the lateral left lung base. Pulmonology recommendation described as above. (3) Hx pulmonary embolism Current Visit: No Status: Chronic Assessment and Plan: Chest CTA negative for PE continue with home Eliquis (4) CAD (coronary artery disease) Current Visit: No Status: Chronic Assessment and Plan: 1 continue with aspirin check lipid profile Continue cardiac monitoring Cardiac echo unremarkable. DVT Prophylaxis: On Eliquis. - Time Spent with Patient Total time spent is greater than 50% in coordination of care (as documented) at patient's floor/unit and/or counseling patient: Greater than 35 minutes Plan of Care Discussed with: patient Internal Medicine: Result - Labs CBC & Chem 7: 09/22/18 01:24 09/22/18 01:24 Labs: Short CBC 09/22/18 Range/Units 01:24 WBC 10.0 (4.3-11.1) K/mcL Hgb 11.3 L (12.9-16.9) g/dL Hct 34.9 L (37.5-50.1) % Plt Count 168 (140-400) K/mcL Neutrophils # 8.5 (1.6-8.9) K/mcL BMP 09/22/18 01:24 Sodium 141 Potassium 4.4 Chloride 100 Carbon Dioxide 33 H BUN 33 H Creatinine 1.37 H Glucose 165 H Calcium 8.5 L - ABG Interpretation ABG results: ABG ABG pH 7.51 pH Units (7.32-7.45) H 09/19/18 20:38 ABG pCO2 37 mmHg (35-45) 09/19/18 20:38 ABG pO2 87 mmHg (85-104) 09/19/18 20:38 ABG O2 Saturation 98 % (95-98) 09/19/18 20:38 PT/INR, D-dimer PT 11.0 Seconds (9.4-12.1) 09/19/18 21:45 Consult Discharge Plan - Plan Referrals: Reny Guerrero [Non-Partnered Physician] - 10/06/18 9:00 am (Please fill out new oatient packet that will be mailed to you to the address on file. Please bring all ID, insurance cards, medications, and medications within the bottles. ) (4) CAD (coronary artery disease) Qualifiers: Coronary Disease-Associated Artery/Lesion type: unspecified vessel or lesion type
[2018-09-22] MEDS: GuaiFENesin Liq 200 MG/10 ML UDC PO PRN ×2 (10:52→21:45)
[2018-09-22] MEDS: DULERA IH SCH ×2 (11:00→21:36)
[2018-09-22 18:46] LABS: A.galactomannan Ag Index 0.02
[2018-09-23] MEDS: Piperacillin/Tazobactam 3.375 GM in 0.9 % Sodium Chloride Mini Bag 100 ML IVPB SCH ×2 (00:33→07:52)
[2018-09-23 02:44] LABS: Basophils % 0.2 %; Hematocrit 34.8 % (37.5-50.1); Hemoglobin 11.1 g/dL (12.9-16.9); Immature Granulocytes % 1.7 % (0-4); Lymphocytes # 1.1 K/mcL (0.6-4.6); Lymphocytes % 10.3 %; Mean Corpuscular HGB Conc 31.9 g/dL (31.6-35.5); Mean Corpuscular Hemoglobin 34.6 pg (28.0-33.3); Mean Corpuscular Volume 108.4 fL (83.0-100.0); Mean Platelet Volume 10.2 fL (9.4-12.4); Monocytes # 0.6 K/mcL (0.0-1.3); Monocytes % 5.5 %; Neutrophils # 8.6 K/mcL (1.6-8.9); Nucleated Red Blood Cells 0.2 /100 WBC (0); Platelet Count 159 K/mcL (140-400); Red Blood Count 3.21 M/mcL (4.19-5.50); Red Cell Distribution Width 14.9 % (11.5-14.5); Segmented Neutrophils % 82.3 %; White Blood Count 10.4 K/mcL (4.3-11.1)
[2018-09-23 03:02] LABS: BUN/Creatinine Ratio 27 (6-26); Blood Urea Nitrogen 34 mg/dL (8-23); Calcium 8.8 mg/dL (8.6-10.3); Carbon Dioxide 34 mEq/L (23-29); Chloride 100 mEq/L (98-107); Glucose 169 mg/dL (70-105); Osmolality,Calculated 308 (280-300); Potassium 3.8 mEq/L (3.5-5.1); Sodium 143 mEq/L (136-145); eGFR For African Americans > 60 (> 60); eGFR For Non-African Americans 57 (> 60)
[2018-09-23] MEDS: Ipratropium/Albuterol Neb 3 ML IH SCH ×6 (04:39→23:28)
[2018-09-23] MEDS: Budesonide/Formoterol 80/4.5 MDI IH SCH ×2 (07:30→19:44)
[2018-09-23] MEDS: Tiotropium 18 MCG inhalation IH SCH (07:30)
[2018-09-23] MEDS: Cholecalciferol (D-3) 1,000 UNIT TABLET PO SCH (07:52)
[2018-09-23] MEDS: Ascorbic Acid 500 MG TABLET PO SCH (07:52)
[2018-09-23] MEDS: predniSONE 20 MG TABLET PO SCH (07:52)
[2018-09-23] MEDS: Apixaban 5 MG TABLET PO SCH ×2 (07:53→19:42)
[2018-09-23] MEDS: Cyanocobalamin (B-12) 1,000 MCG TABLET PO SCH (07:53)
--- NOTE | 2018-09-23 09:46 | Internal Med Progress Note ---
Hospitalist Progress Note - Encounter Date of Encounter: 09/23/18 Time of Encounter: 09:41 - Subjective Interval History: Patient is seen and examined in room. He feels much better than yesterday, less cough, breathing is much better. He feels more energetic this morning and he is sitting in the chair eating his breakfast. Overnight, she he has no fever, chills, or night sweats. - Exam Vitals: Temp Pulse Resp BP Pulse Ox 98.2 F 85 17 153/94 96 09/23/18 07:04 09/23/18 07:04 09/23/18 07:04 09/23/18 07:04 09/23/18 07:04 Exam: Skin: Free of rash and discoloration. Eyes: Sclera is white. There is no discharge from eyes. ENMT: Oral/pharyngeal mucosa is normal in appearance. There is no discharge from nose or ears. Respiratory: Faint expiratory wheeze CV: Heart is regular with no gallop or murmur. GI: Abdomen is flat and soft with no palpable mass or visceromegaly. : There is no tenderness in patient's flanks bilaterally. Neuro exam: He has good strength in upper and lower extremities. He has normal eye movements. Psychiatric: He has normal affect. His thought process is appropriate to the situation. - Assessment and Plan (1) COPD exacerbation Current Visit: Yes Status: Acute Assessment and Plan: Pulm consulted and recommended adding IV zosyn in addition to Azithromycin. Labs are negative for legionella and pneumoncossu, Azithromycin dc'ed. CT chest showed RADHA lesion, Pulm recommended treatment as infection and f/u as outpatient to ensure lesion is resolved. Continue Mucinex, bronchodilators, and BiPAP as needed. IV antibiotics changed to oral Augmentin. Steroids tapering started, prednisone dose decreased from 60 mg daily to 40 mg today. Overall, patient's symptoms have significantly improved. PT/OT recommended [facility], rn case manager and social media intern are following. Pulmonology following, appreciate help. (2) Lesion of left lung Current Visit: Yes Status: Acute Assessment and Plan: Chest CTA did show a bubbly lucency in the posterior left upper lobe measuring 24 x 27 mm in axial plane. No definite solid component. 4 mm nodule with pleural effusion at the lateral left lung base. Pulmonology recommendation described as above. (3) Hx pulmonary embolism Current Visit: No Status: Chronic Assessment and Plan: Chest CTA negative for PE continue with home Eliquis (4) CAD (coronary artery disease) Current Visit: No Status: Chronic Assessment and Plan: 1 continue with aspirin check lipid profile Continue cardiac monitoring Cardiac echo unremarkable. DVT Prophylaxis: On Eliquis. - Time Spent with Patient Total time spent is greater than 50% in coordination of care (as documented) at patient's floor/unit and/or counseling patient: Greater than 35 minutes Plan of Care Discussed with: patient Internal Medicine: Result - Labs CBC & Chem 7: 09/23/18 01:41 09/23/18 01:41 Labs: Short CBC 09/23/18 Range/Units 01:41 WBC 10.4 (4.3-11.1) K/mcL Hgb 11.1 L (12.9-16.9) g/dL Hct 34.8 L (37.5-50.1) % Plt Count 159 (140-400) K/mcL Neutrophils # 8.6 (1.6-8.9) K/mcL BMP 09/23/18 01:41 Sodium 143 Potassium 3.8 Chloride 100 Carbon Dioxide 34 H BUN 34 H Creatinine 1.24 Glucose 169 H Calcium 8.8 - ABG Interpretation ABG results: ABG ABG pH 7.51 pH Units (7.32-7.45) H 09/19/18 20:38 ABG pCO2 37 mmHg (35-45) 09/19/18 20:38 ABG pO2 87 mmHg (85-104) 09/19/18 20:38 ABG O2 Saturation 98 % (95-98) 09/19/18 20:38 PT/INR, D-dimer PT 11.0 Seconds (9.4-12.1) 09/19/18 21:45 Consult Discharge Plan - Plan Referrals: Reny Guerrero [Non-Partnered Physician] - 10/06/18 9:00 am (Please fill out new oatient packet that will be mailed to you to the address on file. Please bring all ID, insurance cards, medications, and medications within the bottles. ) _ (4) CAD (coronary artery disease) Qualifiers: Coronary Disease-Associated Artery/Lesion type: unspecified vessel or lesion type
[2018-09-23] MEDS: DULERA IH SCH ×2 (11:10→19:50)
--- NOTE | 2018-09-23 13:30 | Electrocardiograph Report ---
[address] [address] Test Date: 2018-09-22 Pat Name: Mata Cantu Department: 113 Room: 3B44 Gender: M Risk Assessment Analyst: : [id number] Requested By: Leander Silvestre Order Number: [id number] Reading MD: Mayur Gomes Measurements Intervals [place] Rate: 100 P: 75 MS: 145 QRS: 14 QRSD: 98 T: 91 QT: 325 QTc: 382 Interpretive Statements SINUS TACHYCARDIA WITH OCCASIONAL SUPRAVENTRICULAR PREMATURE COMPLEXES NONSPECIFIC T-WAVE ABNORMALITY Electronically Signed On 09-23-2018 13:29:14 EDT by Mayur Gomes
[2018-09-24 03:01] LABS: Basophils % 0.3 %; Eosinophils % 0.1 %; Hematocrit 34.4 % (37.5-50.1); Immature Granulocytes % 4.1 % (0-4); Lymphocytes # 1.2 K/mcL (0.6-4.6); Lymphocytes % 11.8 %; Mean Corpuscular Hemoglobin 34.4 pg (28.0-33.3); Mean Corpuscular Volume 107.5 fL (83.0-100.0); Mean Platelet Volume 9.9 fL (9.4-12.4); Monocytes # 0.6 K/mcL (0.0-1.3); Monocytes % 6.2 %; Neutrophils # 7.8 K/mcL (1.6-8.9); Nucleated Red Blood Cells 0.2 /100 WBC (0); Platelet Count 162 K/mcL (140-400); Red Cell Distribution Width 14.6 % (11.5-14.5); Segmented Neutrophils % 77.5 %; White Blood Count 10.1 K/mcL (4.3-11.1)
[2018-09-24 03:23] LABS: BUN/Creatinine Ratio 24 (6-26); Blood Urea Nitrogen 26 mg/dL (8-23); Carbon Dioxide 36 mEq/L (23-29); Chloride 101 mEq/L (98-107); Glucose 96 mg/dL (70-105); Osmolality,Calculated 301 (280-300); Potassium 4.5 mEq/L (3.5-5.1); Sodium 143 mEq/L (136-145); eGFR For African Americans > 60 (> 60); eGFR For Non-African Americans > 60 (> 60)
[2018-09-24] MEDS: Ipratropium/Albuterol Neb 3 ML IH SCH ×6 (04:05→23:43)
[2018-09-24] MEDS: Tiotropium 18 MCG inhalation IH SCH (07:03)
[2018-09-24] MEDS: Budesonide/Formoterol 80/4.5 MDI IH SCH ×2 (07:37→19:30)
[2018-09-24] MEDS: Cyanocobalamin (B-12) 1,000 MCG TABLET PO SCH (09:20)
[2018-09-24] MEDS: predniSONE 20 MG TABLET PO SCH (09:20)
[2018-09-24] MEDS: Apixaban 5 MG TABLET PO SCH ×2 (09:21→20:35)
[2018-09-24] MEDS: Cholecalciferol (D-3) 1,000 UNIT TABLET PO SCH (09:21)
[2018-09-24] MEDS: Ascorbic Acid 500 MG TABLET PO SCH (09:21)
[2018-09-24] MEDS: DULERA IH SCH ×2 (09:27→20:42)
--- NOTE | 2018-09-24 09:50 | Internal Med Progress Note ---
Hospitalist Progress Note - Encounter Date of Encounter: 09/24/18 Time of Encounter: 09:48 - Subjective Interval History: Patient seen and examined in the room. Cough and respiratory distress improving. Reported having nosebleeding this morning. Also reported having difficulty coughing out mucus. Denies fever, chills, night sweats. - Exam Vitals: Temp Pulse Resp BP Pulse Ox 97.7 F 88 15 160/94 100 09/24/18 06:41 09/24/18 06:41 09/24/18 07:55 09/24/18 06:41 09/24/18 07:55 Exam: Skin: Free of rash and discoloration. Eyes: Sclera is white. There is no discharge from eyes. ENMT: Oral/pharyngeal mucosa is normal in appearance. There is no discharge fr om nose or ears. Respiratory: Faint expiratory wheeze CV: Heart is regular with no gallop or murmur. GI: Abdomen is flat and soft with no palpable mass or visceromegaly. : There is no tenderness in patient's flanks bilaterally. Neuro exam: He has good strength in upper and lower extremities. He has normal eye movements. Psychiatric: He has normal affect. His thought process is appropriate to the situation. - Assessment and Plan (1) COPD exacerbation Current Visit: Yes Status: Acute Assessment and Plan: Pulm consulted and recommended adding IV zosyn in addition to Azithromycin. Labs are negative for legionella and pneumoncossu, Azithromycin dc'ed. CT chest showed RADHA lesion, Pulm recommended treatment as infection and f/u as outpatient to ensure lesion is resolved. Continue Mucinex, bronchodilators, and BiPAP as needed. Moisture oxygen. IV antibiotics changed to oral Augmentin. Steroids tapering started, prednisone dose decreased from 60 mg daily to 40 mg. Overall, patient's symptoms have significantly improved. PT/OT recommended ECF, nurse case management and social media specialist are following. (2) Lesion of left lung Current Visit: Yes Status: Acute Assessment and Plan: Chest CTA did show a bubbly lucency in the posterior left upper lobe measuring 24 x 27 mm in axial plane. No definite solid component. 4 mm nodule with pleural effusion at the lateral left lung base. Pulmonology recommendation described as above. (3) Hx pulmonary embolism Current Visit: No Status: Chronic Assessment and Plan: Chest CTA negative for PE continue with home Eliquis (4) CAD (coronary artery disease) Current Visit: No Status: Chronic Assessment and Plan: 1 continue with aspirin check lipid profile Continue cardiac monitoring Cardiac echo unremarkable. DVT Prophylaxis: On Eliquis. - Time Spent with Patient Total time spent is greater than 50% in coordination of care (as documented) at patient's floor/unit and/or counseling patient: Greater than 35 minutes Plan of Care Discussed with: patient Internal Medicine: Result - Labs CBC & Chem 7: 09/24/18 02:20 09/24/18 02:20 Labs: Short CBC 09/24/18 Range/Units 02:20 WBC 10.1 (4.3-11.1) K/mcL Hgb 11.0 L (12.9-16.9) g/dL Hct 34.4 L (37.5-50.1) % Plt Count 162 (140-400) K/mcL Neutrophils # 7.8 (1.6-8.9) K/mcL BMP 09/24/18 02:20 Sodium 143 Potassium 4.5 Chloride 101 Carbon Dioxide 36 H BUN 26 H Creatinine 1.07 Glucose 96 Calcium 9.0 - ABG Interpretation ABG results: ABG ABG pH 7.51 pH Units (7.32-7.45) H 09/19/18 20:38 ABG pCO2 37 mmHg (35-45) 09/19/18 20:38 ABG pO2 87 mmHg (85-104) 09/19/18 20:38 ABG O2 Saturation 98 % (95-98) 09/19/18 20:38 PT/INR, D-dimer PT 11.0 Seconds (9.4-12.1) 09/19/18 21:45 Consult Discharge Plan - Plan Referrals: Reny Guerrero [Non-Partnered Physician] - 10/06/18 9:00 am (Please fill out new oatient packet that will be mailed to you to the address on file. Please bring all ID, insurance cards, medications, and medications within the bottles. ) (4) CAD (coronary artery disease) Qualifiers: Coronary Disease-Associated Artery/Lesion type: unspecified vessel or lesion type
[2018-09-24] MEDS: Azelastine 0.1% Nasal Spray 30 ML BOTTLE NS PRN (16:14)
[2018-09-25] MEDS: Ipratropium/Albuterol Neb 3 ML IH SCH ×6 (03:08→23:19)
[2018-09-25] MEDS: Budesonide/Formoterol 80/4.5 MDI IH SCH ×2 (07:26→19:52)
[2018-09-25] MEDS: Tiotropium 18 MCG inhalation IH SCH (07:30)
[2018-09-25] MEDS: Cyanocobalamin (B-12) 1,000 MCG TABLET PO SCH (08:47)
[2018-09-25] MEDS: Ascorbic Acid 500 MG TABLET PO SCH (08:47)
[2018-09-25] MEDS: Apixaban 5 MG TABLET PO SCH ×2 (08:47→20:03)
[2018-09-25] MEDS: Cholecalciferol (D-3) 1,000 UNIT TABLET PO SCH (08:47)
[2018-09-25] MEDS: predniSONE 20 MG TABLET PO SCH (08:47)
[2018-09-25] MEDS: DULERA IH SCH ×2 (08:50→20:25)
--- NOTE | 2018-09-25 09:53 | Internal Med Progress Note ---
Hospitalist Progress Note - Encounter Date of Encounter: 09/25/18 Time of Encounter: 09:51 - Subjective Interval History: Pt seen and examined in the room. He reported SOB and cough are improving. overnight, no fever, chills, or night sweats. - Exam Vitals: Temp Pulse Resp BP Pulse Ox 98.0 F 85 18 162/77 98 09/25/18 06:44 09/25/18 06:44 09/25/18 07:26 09/25/18 06:44 09/25/18 07:26 Exam: Skin: Free of rash and discoloration. Eyes: Sclera is white. There is no discharge from eyes. ENMT: Oral/pharyngeal mucosa is normal in appearance. There is no discharge from nose or ears. Respiratory: Faint expiratory wheeze CV: Heart is regular with no gallop or murmur. GI: Abdomen is flat and soft with no palpable mass or visceromegaly. : There is no tenderness in patient's flanks bilaterally. Neuro exam: He has good strength in upper and lower extremities. He has normal eye movements. Psychiatric: He has normal affect. His thought process is appropriate to the situation. - Assessment and Plan (1) COPD exacerbation Current Visit: Yes Status: Acute Assessment and Plan: Pulm consulted and recommended adding IV zosyn in addition to Azithromycin. Labs are negative for legionella and pneumoncossu, Azithromycin dc'ed. CT chest showed RADHA lesion, Pulm recommended treatment as infection and f/u as outpatient to ensure lesion is resolved. Continue Mucinex, bronchodilators, and BiPAP as needed. Moisture oxygen. IV antibiotics changed to oral Augmentin. Steroids tapering started, prednisone dose decreased from 60 mg daily to 40 mg. Overall, patient's symptoms have significantly improved. PT/OT recommended ECF, upper caser and forensic social worker are following. (2) Lesion of left lung Current Visit: Yes Status: Acute Assessment and Plan: Chest CTA did show a bubbly lucency in the posterior left upper lobe measuring 24 x 27 mm in axial plane. No definite solid component. 4 mm nodule with pleural effusion at the lateral left lung base. Pulmonology recommendation described as above. (3) Hx pulmonary embolism Current Visit: No Status: Chronic Assessment and Plan: Chest CTA negative for PE continue with home Eliquis (4) CAD (coronary artery disease) Current Visit: No Status: Chronic Assessment and Plan: 1 continue with aspirin check lipid profile Continue cardiac monitoring Cardiac echo unremarkable. DVT Prophylaxis: On Eliquis. - Time Spent with Patient Total time spent is greater than 50% in coordination of care (as documented) at patient's floor/unit and/or counseling patient: Greater than 35 minutes Plan of Care Discussed with: patient Internal Medicine: Result - Labs CBC & Chem 7: 09/24/18 02:20 09/24/18 02:20 - ABG Interpretation ABG results: ABG ABG pH 7.51 pH Units (7.32-7.45) H 09/19/18 20:38 ABG pCO2 37 mmHg (35-45) 09/19/18 20:38 ABG pO2 87 mmHg (85-104) 09/19/18 20:38 ABG O2 Saturation 98 % (95-98) 09/19/18 20:38 PT/INR, D-dimer PT 11.0 Seconds (9.4-12.1) 09/19/18 21:45 Consult Discharge Plan - Plan Referrals: Reny Guerrero [Non-Partnered Physician] - 10/06/18 9:00 am (Please fill out new patient packet that will be mailed to you to the address on file. Please b ring all ID, insurance cards, medications, and medications within the bottles. ) (4) CAD (coronary artery disease) Qualifiers: Coronary Disease-Associated Artery/Lesion type: unspecified vessel or lesion type
[2018-09-25] MEDS: Azelastine 0.1% Nasal Spray 30 ML BOTTLE NS PRN (20:05)
[2018-09-26] MEDS: Ipratropium/Albuterol Neb 3 ML IH SCH ×3 (03:38→11:14)
[2018-09-26 06:29] LABS: Mean Corpuscular HGB Conc 31.5 g/dL (31.6-35.5); Mean Corpuscular Hemoglobin 33.7 pg (28.0-33.3); Mean Platelet Volume 9.8 fL (9.4-12.4); Nucleated Red Blood Cells 0.2 /100 WBC (0); Platelet Count 188 K/mcL (140-400); Red Blood Count 3.74 M/mcL (4.19-5.50); Red Cell Distribution Width 14.6 % (11.5-14.5); White Blood Count 12.6 K/mcL (4.3-11.1)
[2018-09-26 06:30] LABS: Hemoglobin 12.6 g/dL (12.9-16.9)
[2018-09-26 06:50] VITALS: BP 151/90
[2018-09-26 06:50] LABS: BUN/Creatinine Ratio 22 (6-26); Blood Urea Nitrogen 23 mg/dL (8-23); Calcium 9.1 mg/dL (8.6-10.3); Carbon Dioxide 36 mEq/L (23-29); Chloride 100 mEq/L (98-107); Glucose 87 mg/dL (70-105); Osmolality,Calculated 299 (280-300); Potassium 4.3 mEq/L (3.5-5.1); Sodium 143 mEq/L (136-145); eGFR For African Americans > 60 (> 60); eGFR For Non-African Americans > 60 (> 60)
[2018-09-26 06:51] LABS: Monocytes # 0.3 K/mcL (0.0-1.3); Neutrophils # 10.3 K/mcL (1.6-8.9)
[2018-09-26 06:52] LABS: Platelet Estimate Normal (Normal)
[2018-09-26] MEDS: Budesonide/Formoterol 80/4.5 MDI IH SCH (07:12)
[2018-09-26] MEDS: Tiotropium 18 MCG inhalation IH SCH (07:26)
[2018-09-26] MEDS: Cholecalciferol (D-3) 1,000 UNIT TABLET PO SCH (08:22)
[2018-09-26] MEDS: Ascorbic Acid 500 MG TABLET PO SCH (08:22)
[2018-09-26] MEDS: predniSONE 20 MG TABLET PO SCH (08:23)
[2018-09-26] MEDS: Apixaban 5 MG TABLET PO SCH (08:23)
[2018-09-26] MEDS: Cyanocobalamin (B-12) 1,000 MCG TABLET PO SCH (08:23)
[2018-09-26] MEDS: DULERA IH SCH (08:24)
--- NOTE | 2018-09-26 09:18 | Physician Discharge Referral ---
ExtendedCare Referral Info Provider in Charge after Transfer: Other Institutional Level of Care: Skilled - Diagnosis (1) COPD exacerbation Priority: Primary Status: Acute (2) Lesion of left lung Priority: Primary Status: Acute (3) Hx pulmonary embolism Priority: Secondary Status: Chronic (4) CAD (coronary artery disease) Priority: Secondary Status: Chronic Prognosis: Fair Aware of Diagnosis: Patient, Family Aware of Prognosis: Patient, Family - Transfer Medications Home Medications: Apixaban [Eliquis] 5 mg PO BID 09/20/18 [History] Ascorbic Acid [C-500] 500 mg PO DAILY 09/20/18 [History] Azelastine HCl [Astepro] 2 spray NS BID 09/20/18 [History] Azithromycin [Zithromax] 250 mg PO MOWEFR 09/20/18 [History] Brimonidine Tartrate [Lumify] 1 drop LEFT EYE BID 09/20/18 [History] Cholecalciferol (Vitamin D3) [Dialyvite Vitamin D] 5,000 units PO QAM 09/20/18 [History] Cyanocobalamin (Vitamin B-12) [Vitamin B-12] 500 mcg PO QAM 09/20/18 [History] Furosemide [Lasix] 40 mg PO QAM 09/20/18 [History] Guaifenesin [Mucus Relief] 400 mg PO BID 09/20/18 [History] Ipratropium/Albuterol Sulfate [Combivent Respimat Inhal [place]] 1 puff IH QID PRN 09/20/18 [History] Ipratropium/Albuterol Sulfate [Iprat-Albut 0.5-3(2.5) mg/3 ml] 3 ml PO QID PRN 09/20/18 [History] Mometasone/Formoterol [Dulera 100 Mcg/5 Mcg Inhaler] 2 puff IH BID 09/20/18 [History] Montelukast [Singulair] 10 mg PO QAM 09/20/18 [History] Potassium Chloride [K-Tab ER] 20 meq PO BID 09/20/18 [History] Tiotropium [Spiriva] 18 mcg IH PRN PRN 09/20/18 [History] predniSONE [PredniSONE] 60 mg PO QAM 09/20/18 [History] Allergies/Adverse Reactions: Allergy/AdvReac Type Severity Reaction Status Date / Time atorvastatin [From Lipitor] Allergy Muscle Verified 09/20/18 01:35 Pain, Weakness clarithromycin [From Biaxin] Allergy Nausea, Verified 09/20/18 01:35 Stomach Cramping clonazepam [From Klonopin] Allergy Dizziness, Verified 09/20/18 01:35 Confusion dexamethasone Allergy See Verified 09/20/18 01:35 Comments doxycycline Allergy Hives Verified 09/20/18 00:42 ezetimibe [From Vytorin] Allergy Muscle Verified 09/20/18 01:35 Pain, Weakness fluticasone Allergy Difficulty Verified 09/20/18 01:35 [From Advair Diskus] Breathing levofloxacin Allergy See Verified 09/20/18 01:35 Comments lorazepam [From Ativan] Allergy Depression, Verified 09/20/18 01:35 Hallucinations, Confusio methylprednisolone Allergy Difficulty Verified 09/20/18 00:44 [From Solu-Medrol] Swallowing oseltamivir [From Tamiflu] Allergy Hallucinating, Verified 09/20/18 01:35 Confusion salmeterol Allergy Difficulty Verified 09/20/18 01:35 [From Advair Diskus] Breathing simvastatin [From Vytorin] Allergy Fainting Verified 09/20/18 00:44 Sulfa (Sulfonamide Allergy Hives, Verified 09/20/18 01:35 Antibiotics) Swelling Varenicline [From Chantix] Allergy Agitated, Verified 09/20/18 01:35 Depression, Extreme mood changes cefazolin [From Ancef] AdvReac Nausea, Verified 09/20/18 01:35 Diarrhea roflumilast [From Daliresp] AdvReac Depression, Verified 09/20/18 01:35 Confusion, Agitation, Mood Change, Dizziness - Respiratory Orders Smoking Cessation: Smoking cessation has been advised. For more information, call the [place] Tobacco Quit Line at 8-072-LQKX-NOW. - Advance Directives Code Status: Full Code - Rehabiliation Orders Rehab Orders: Evaluation for Physical Therapy, Evaluation for Occupational Therapy CERTIFICATION: I certify that the transfer of the above named patient to an Extended Care Facility is necessary for the continuing treatment of the diagnosis listed. The above information is true and accurate reflection of patient's current condition. Confidential - Redisclosure prohibited without a patient's written consent.
--- NOTE | 2018-09-26 09:26 | Discharge Summary ---
- NOTES TO OUTPATIENT PROVIDER Notes to Outpatient Provider: f/u with PCP within 2 weeks. F/u with pulmonology within 3-4 weeks. Date of Encounter: 09/26/18 Time of Encounter: 09:19 - Discharge Diagnosis (1) COPD exacerbation Priority: Primary Status: Acute (2) Lesion of left lung Priority: Primary Status: Acute (3) Hx pulmonary embolism Priority: Secondary Status: Chronic (4) CAD (coronary artery disease) Priority: Secondary Status: Chronic Qualifiers: Coronary Disease-Associated Artery/Lesion type: unspecified vessel or lesion type Associated angina: without angina Qualified Code(s): I25.10 - Atherosclerotic heart disease of [place] coronary artery without angina pectoris Hospital course: Mr. Cantu is a 73 year old male with past medical history of CAD, COPD with home oxygen, pulmonary embolism on epixaban who was originally transferred from [facility] because of increasing shortness of breath and cough. A CTA of the chest was performed which revealed a negative for acute pulmonary embolism, left upper lobe small sized consolidation suspicious for malignancy versus inflammation, and a 4 mm solid nodule at the left arm basis. Pulmonology was consulted, the left upper lobe consolidation was suspected for pneumonia, patient was started on IV antibiotics with Zosyn and vancomycin initially. Oral steroids and bronchodilators were also started for COPD exacerbation. An echocardiogram was also performed which revealed LV ejection 50-55%, normal LV chamber size, wall thickness, and function, mild LVDD, and no evidence of pulmonary hypertension. Due to the history of severe COPD, patient's symptoms slowly but gradually improved with treatment. PT/OT was consulted, recommended inpatient rehabilitation. Patient will be discharged [facility] today, he was instructed to continue oral antibiotics until finished. He will also take tapering steroids of prednisone, his home dose of Lasix was decreased because of rising creatinine, he will follow-up with PCP and a pulmonology as scheduled. A repeat CT of chest may be necessary to confirm resolution of left upper lobe consolidation. Discharge discussed with: patient Time spent discussing smoking cessation with patient: more than 10 minutes - Time Spent with Patient Total time spent providing and/or coordinating discharge services: Time spent: Greater than 30 minutes - Discharge Medications Prescriptions: New Amoxicillin/Clavulanate [Augmentin] 875 mg PO BIDWM #14 tablet Furosemide [Lasix] 20 mg PO DAILY #30 tablet predniSONE [PredniSONE] 10 mg PO DAILY #18 tablet GuaiFENesin/Dextromethorphan [Robitussin/Dm] 5 ml PO Q4HR PRN #20 udc PRN Reason: Cough Continued Tiotropium [Spiriva] 18 mcg IH PRN PRN PRN Reason: Shortness Of Breath Montelukast [Singulair] 10 mg PO QAM Potassium Chloride [K-Tab ER] 20 meq PO BID Ipratropium/Albuterol Sulfate [Combivent Respimat Inhal [place]] 1 puff IH QID PRN PRN Reason: Shortness Of Breath Guaifenesin [Mucus Relief] 400 mg PO BID Apixaban [Eliquis] 5 mg PO BID Mometasone/Formoterol [Dulera 100 Mcg/5 Mcg Inhaler] 2 puff IH BID Ascorbic Acid [C-500] 500 mg PO DAILY Azelastine HCl [Astepro] 2 spray NS BID Brimonidine Tartrate [Lumify] 1 drop LEFT EYE BID Cholecalciferol (Vitamin D3) [Dialyvite Vitamin D] 5,000 units PO QAM Cyanocobalamin (Vitamin B-12) [Vitamin B-12] 500 mcg PO QAM Ipratropium/Albuterol Sulfate [Iprat-Albut 0.5-3(2.5) mg/3 ml] 3 ml PO QID PRN PRN Reason: BREATHING Discontinued Azithromycin [Zithromax] 250 mg PO MOWEFR Furosemide [Lasix] 40 mg PO QAM predniSONE [PredniSONE] 60 mg PO QAM Home Medications: Apixaban [Eliquis] 5 mg PO BID 09/20/18 [History] Ascorbic Acid [C-500] 500 mg PO DAILY 09/20/18 [History] Azelastine HCl [Astepro] 2 spray NS BID 09/20/18 [History] Brimonidine Tartrate [Lumify] 1 drop LEFT EYE BID 09/20/18 [History] Cholecalciferol (Vitamin D3) [Dialyvite Vitamin D] 5,000 units PO QAM 09/20/18 [History] Cyanocobalamin (Vitamin B-12) [Vitamin B-12] 500 mcg PO QAM 09/20/18 [History] Guaifenesin [Mucus Relief] 400 mg PO BID 09/20/18 [History] Ipratropium/Albuterol Sulfate [Combivent Respimat Inhal [place]] 1 puff IH QID PRN 09/20/18 [History] Ipratropium/Albuterol Sulfate [Iprat-Albut 0.5-3(2.5) mg/3 ml] 3 ml PO QID PRN 09/20/18 [History] Mometasone/Formoterol [Dulera 100 Mcg/5 Mcg Inhaler] 2 puff IH BID 09/20/18 [History] Montelukast [Singulair] 10 mg PO QAM 09/20/18 [History] Potassium Chloride [K-Tab ER] 20 meq PO BID 09/20/18 [History] Tiotropium [Spiriva] 18 mcg IH PRN PRN 09/20/18 [History] Amoxicillin/Clavulanate [Augmentin] 875 mg PO BIDWM #14 tablet 09/26/18 [Rx] Furosemide [Lasix] 20 mg PO DAILY #30 tablet 09/26/18 [Rx] GuaiFENesin/Dextromethorphan [Robitussin/Dm] 5 ml PO Q4HR PRN #20 udc 09/26/18 [Rx] predniSONE [PredniSONE] 10 mg PO DAILY #18 tablet 09/26/18 [Rx] Allergies/Adverse Reactions: Allergy/AdvReac Type Severity Reaction Status Date / Time atorvastatin [From Lipitor] Allergy Muscle Verified 09/20/18 01:35 Pain, Weakness clarithromycin [From Biaxin] Allergy Nausea, Verified 09/20/18 01:35 Stomach Cramping clonazepam [From Klonopin] Allergy Dizziness, Verified 09/20/18 01:35 Confusion dexamethasone Allergy See Verified 09/20/18 01:35 Comments doxycycline Allergy Hives Verified 09/20/18 00:42 ezetimibe [From Vytorin] Allergy Muscle Verified 09/20/18 01:35 Pain, Weakness fluticasone Allergy Difficulty Verified 09/20/18 01:35 [From Advair Diskus] Breathing levofloxacin Allergy See Verified 09/20/18 01:35 Comments lorazepam [From Ativan] Allergy Depression, Verified 09/20/18 01:35 Hallucinations, Confusio methylprednisolone Allergy Difficulty Verified 09/20/18 00:44 [From Solu-Medrol] Swallowing oseltamivir [From Tamiflu] Allergy Hallucinating, Verified 09/20/18 01:35 Confusion salmeterol Allergy Difficulty Verified 09/20/18 01:35 [From Advair Diskus] Breathing simvastatin [From Vytorin] Allergy Fainting Verified 09/20/18 00:44 Sulfa (Sulfonamide Allergy Hives, Verified 09/20/18 01:35 Antibiotics) Swelling Varenicline [From Chantix] Allergy Agitated, Verified 09/20/18 01:35 Depression, Extreme mood changes cefazolin [From Ancef] AdvReac Nausea, Verified 09/20/18 01:35 Diarrhea roflumilast [From Daliresp] AdvReac Depression, Verified 09/20/18 01:35 Confusion, Agitation, Mood Change, Dizziness Date of admission: 09/21/18 14:43 Primary care physician: PCP NONE Consults: 09/19/18 20:23 Consult to Speech Therapy [CONS] Routine Comment: Evaluate, develop and implement POC Reason for Consult: difficulty swallowing with aspiration episodes Call Completed: No 09/20/18 08:56 Consult to Nurse Navigator [CONS] Routine Comment: COPD 09/20/18 09:37 Consult to Pulmonology [CONS] Routine Consulting Provider: Pulm [facility] Reason for Consult: COPD excerbation Time Notified: 09:38 Call Completed: Yes 09/21/18 15:16 Consult to Occupational Therapy [CONS] Routine Comment: Evaluate, develop and implement POC Reason for Consult: weakness Does patient have active BEDREST order?: No Is patient medically & hemodynamically stable?: Yes Consult to Physical Therapy [CONS] Routine Comment: Evaluate, develop and implement POC Reason for Consult: weakness Does patient have active BEDREST order?: No Is patient medically & hemodynamically stable?: Yes 09/22/18 10:44 Consult to Garment Alteration Examiner [CONS] Routine Reason for SW Consult: PT/OT RECOMMEND SNF Anticipated date of discharge: 09/26/18 - Constitutional Vitals: Temp Pulse Resp BP Pulse Ox 98.2 F 78 18 151/90 98 09/26/18 06:49 09/26/18 06:49 09/26/18 07:15 09/26/18 06:49 09/26/18 07:15 General appearance: Present: A&O X 3 Exam: Skin: Free of rash and discoloration. Eyes: Sclera is white. There is no discharge from eyes. ENMT: Oral/pharyngeal mucosa is normal in appearance. There is no discharge from nose or ears. Respiratory: Faint expiratory wheeze CV: Heart is regular with no gallop or murmur. GI: Abdomen is flat and soft with no palpable mass or visceromegaly. : There is no tenderness in patient's flanks bilaterally. Neuro exam: He has good strength in upper and lower extremities. He has normal eye movements. Psychiatric: He has normal affect. His thought process is appropriate to the situation. - Patient Status Disposition: Transfer SNF Condition: Fair Functional capacity at discharge: uses cane/walker Overall status at discharge: patient is progressing back to baseline - Discharge Instructions Follow Up With: Reny Guerrero [Non-Partnered Physician] - 10/06/18 9:00 am (Please fill out new patient packet that will be mailed to you to the address on file. Please bring all ID, insurance cards, medications, and medications within the bottles. ) Turner Mcfarland MD [Partnered Physician] - (Appt has been requested. ) - Diet and Activity Activity: increase activity as tolerated Diet: low fat, low cholesterol, low salt diet
== END 2018-09-26 11:45 | DRG 190 ==
LOC: 3BNU
PROVIDERS: ADMIT Internal Medicine Nephrology; ATTEND Internal Medicine Nephrology